=== PATIENT | female | born 1960 | race Caucasian/White ===

== ENCOUNTER 2017-02-02 18:43 | Emergency (ER) | payer MEDICAID, OTHER ==
[~2017-02-02] VITALS: Ht 157.5 cm; Wt 90.0 kg
[~2017-02-02 18:43] MED LIST: ASPI81TA3 PO; ATOR10TA65 PO; GLIM2TAB47 PO; LANT3I SC; LEVO750T25 PO; LISI-525 PO; METR500T PO
[2017-02-02 19:03] VITALS: Ht 157.5 cm; Wt 90.0 kg
--- NOTE | 2017-02-02 21:24 | ERA ---
ER Documentation Chief Complaint Date/Time DATE: 02/02/17 TIME: 21:21 Chief Complaint multi symptoms like HTN&back pains HPI 56-year-old female with a history of hypertension hyperlipidemia presents with a chief complaint of chest pain radiating to the back and epigastric pain 1 day. Patient had similar symptoms when she was visiting [place]. Patient does not remember the diagnosis that she had but stayed in the hospital 1 week. Describes mild shortness of breath. Has not taken any medications to relieve the symptoms to date. Surgical history includes hernia repair and cholecystectomy. Patient states that when she touches her chest pain increases slightly. Denies any nausea, vomiting, constipation, diarrhea, headache. No known cardiac history. Patient has no other complaints and describes no other associated manifestations. Nursing notes have been reviewed and are consistent with history given. ROS All systems reviewed and are negative except as per history of present illness. Medications Home Meds Active Scripts Levofloxacin* (Levaquin*) 750 Mg Tablet, 750 MG PO DAILY for 3 Days, TAB Prov:NADIROCHOA F. 01/13/14 Metronidazole* (Flagyl*) 500 Mg Tablet, 500 MG PO Q8 for 3 Days, TAB Prov:NADIROCHOA . 01/13/14 Lisinopril* (Zestril*) 20 Mg Tab, 20 MG PO DAILY for 30 Days Prov:NADIROCHOA 01/13/14 Insulin Glargine* (Lantus*) 100 Unit/Ml Soln, 30 UNIT SC QHS for 30 Days Prov:NADIROCHOA 01/13/14 Glimepiride* (Amaryl*) 2 Mg Tab, 2 MG PO AC BREAKFAST for 30 Days Prov:NADIROCHOA 01/13/14 Atorvastatin Calcium (Atorvastatin Calcium) 10 Mg Tab, 10 MG PO HS for 30 Days, TAB Prov:GABRIELA SCHMITZ 01/13/14 Aspirin (Aspirin) 81 Mg Chew, 81 MG PO DAILY for 30 Days Prov:NADIR01/13/14 Allergies Allergies: Coded Allergies: No Known Drug Allergy (Verified Allergy, Unknown, 01/09/14) PMhx/Soc History of Surgery: Yes (HYSTERECTOMY, CHOLECYSTECTOMY, HERNIA REAPAIR) Anesthesia Reaction: No Hx Neurological Disorder: No Hx Respiratory Disorders: Yes (asthma) Hx Cardiac Disorders: Yes (HTN) Hx Psychiatric Problems: No Hx Miscellaneous Medical Probl: Yes ( DM) Hx Alcohol Use: No Hx Substance Use: No Hx Tobacco Use: No Smoking Status: Never smoker Physical Exam Vitals Vital Signs Date Time Temp Pulse Resp B/P Pulse Ox O2 Delivery O2 Flow Rate FiO2 02/02/17 21:48 Nasal Cannula 02/02/17 19:03 98.8 70 18 199/94 95 Physical Exam Const: Morbidly obese 56-year-old female no acute distress sitting on the gurney Head: Atraumatic Eyes: Normal Conjunctiva. PERRLA, EOMI bilaterally ENT: Normal External Ears, Nose and Mouth. Neck: Full range of motion..~ No meningismus. Resp: Clear to auscultation bilaterally Cardio: Mild-moderate tenderness palpation of the chest wall. Regular rate and rhythm, no murmurs Abd: Soft, non tender, non distended. Normal bowel sounds. No masses palpated. Skin: No petechiae or rashes Back: No midline or flank tenderness. No CVA tenderness Ext: No cyanosis, or edema Neur: Awake and alert Psych: Normal Mood and Affect Result Diagram: 02/02/17213902/02/172139 Results 24 hrs Laboratory Tests Test 02/02/17 21:40 White Blood Count 10.010^3/ul Red Blood Count 5.0210^6/ul Hemoglobin 13.6g/dl Hematocrit 41.3% Mean Corpuscular Volume 82.3fl Mean Corpuscular Hemoglobin 27.1pg Mean Corpuscular Hemoglobin Concent 32.9g/dl Red Cell Distribution Width 13.7% Platelet Count 56164^3/UL Mean Platelet Volume 9.4fl Neutrophils % 58.8% Lymphocytes % 31.8% Monocytes % 7.0% Eosinophils % 2.0% Basophils % 0.2% Nucleated Red Blood Cells % 0.0/100WBC Neutrophils # 5.910^3/ul Lymphocytes # 3.210^3/ul Monocytes # 0.710^3/ul Eosinophils # 0.210^3/ul Basophils # 0.010^3/ul Nucleated Red Blood Cells # 0.010^3/ul Sodium Level 139mmol/L Potassium Level 3.5mmol/L Chloride Level 103mmol/L Carbon Dioxide Level 25mmol/L Anion Gap 15 Blood Urea Nitrogen 9mg/dl Creatinine 0.44mg/dl Glucose Level 176mg/dl Calcium Level 8.8mg/dl Troponin I < 0.012ng/ml [facility] Patient is presenting with a chief complaint of chest pain that is worse with palpation 1 day. Described as radiating to the back. Also complains of epigastric discomfort. Case was presented to my attending who recommended a workup. EKG was read by me and given the following impression: Normal access, no ST elevation depression, no T-wave abnormalities, regular rate and rhythm, and poor baseline. Chest x-ray was obtained, read by the radiologist, and given the following impression: No evidence for active cardiopulmonary disease. CBC: Unremarkable CMP: Unremarkable At this time a little suspicion for ACS, pneumonia, pneumothorax, hemothorax, cholecystitis, pancreatitis, pulmonary embolism, dissection or other cardiopulmonary pathologies. No suspicion for serious bacterial infection. Most likely diagnosis is chest pain of unknown etiology. I spoke with my attending who agrees with the assessment and plan. Have recommended over-the- counter NSAIDs for symptomatic relief. I have spoke with the patient regarding their condition and future management. They have verbally responded that they understand their status and treatment plan. The patients vitals are stable, and their current condition is appropriate for discharge. The patient will be given discharge instructions with return precautions. Departure Diagnosis: Primary Impression: Chest pain Qualified Code: R07.9 - Chest pain, unspecified type Condition: Stable Additional Instructions: Kyaw un seguimiento con ward PCP dentro de los prximos 1-3 coelho para mariano evaluaci n ms completa y mariano posible derivacin a un especialista. Devuelva el departamento de emergencia inmediatamente si los sntomas empeoran o cambian. Si tiene alguna pregunta con respecto a los medicamentos, consulte con ward farmac utico o con nosotros antes de salir. Si se producen reacciones adversas mientras katlin aby medicamentos, suspenda el tratamiento y regrese inmediatamente al servicio de urgencias. Garey aby medicamentos segn las indicaciones y complete el curso completo del tratamiento. KRISTI LOMAX PA-C Feb 02, 2017:24
[2017-02-02 22:19] LABS: BASOPHILS % 0.2 % (0.0-2.0); EOSINOPHILS # 0.2 10^3/ul (0.0-0.5); HEMATOCRIT 41.3 % (37.0-47.0); HEMOGLOBIN 13.6 g/dl (12.0-16.0); LYMPHOCYTES # 3.2 10^3/ul (0.8-2.9); LYMPHOCYTES % 31.8 % (15.0-51.0); MEAN CORPUSCULAR HEMOGLOBIN 27.1 pg (29.0-33.0); MEAN CORPUSCULAR HGB CONC 32.9 g/dl (32.0-37.0); MEAN CORPUSCULAR VOLUME 82.3 fl (82.0-101.0); MEAN PLATELET VOLUME 9.4 fl (7.4-10.4); MONOCYTE # 0.7 10^3/ul (0.3-0.9); NEUTROPHIL # 5.9 10^3/ul (1.6-7.5); NEUTROPHILS % 58.8 % (39.0-77.0); PLATELET COUNT 295 10^3/UL (140-415); RED BLOOD COUNT 5.02 10^6/ul (4.20-5.40); RED CELL DISTRIBUTION WIDTH 13.7 % (11.5-14.5)
--- NOTE | 2017-02-02 22:39 | RADRPT ---
PROCEDURE: XR Chest. CLINICAL INDICATION: Chest Pain. TECHNIQUE: Single frontal view of the chest was obtained. COMPARISON: 01/09/2014 FINDINGS: The cardiomediastinal silhouette is normal size. Pulmonary vasculature is within normal limits. Th e lungs are clear. No signs of pleural fluid or pneumothorax are seen. The osseous structures and soft tissues are unre markable. IMPRESSION: No evidence for active cardiopulmonary disease. RPTAT: HBST .Himanshu Hernandes MD, MD Date Time Electronically viewed and signed by .Himanshu Hernandes MD, on 02/02/2017 22:38 .T/
[2017-02-02 22:41] LABS: ANION GAP 15 (8-16); BLOOD UREA NITROGEN 9 mg/dl (7-20); CALCIUM 8.8 mg/dl (8.4-10.2); CARBON DIOXIDE 25 mmol/L (21-31); CHLORIDE 103 mmol/L (97-110); CREATININE 0.44 mg/dl (0.44-1.00); GLUCOSE 176 mg/dl (70-220); POTASSIUM 3.5 mmol/L (3.5-5.1); SODIUM 139 mmol/L (135-144)
[2017-02-02 22:54] LABS: TROPONIN-I < 0.012 ng/ml (0.00-0.12)
[2017-02-02 23:46] VITALS: BP 134/82; PULSE 68; RESP 18; TEMP 98.8
== END 2017-02-02 23:49 | disposition home or self-care (01) ==
LOC: FTE 18:43
DX: R07.9 Chest pain, unspecified (principal); I10 Essential (primary) hypertension; J45.909 Unspecified asthma, uncomplicated; E11.9 Type 2 diabetes mellitus without complications; Z79.4 Long term (current) use of insulin; Z79.82 Long term (current) use of aspirin; Z79.84 Long term (current) use of oral hypoglycemic drugs
CPT/HCPCS: 36415; 71010; 80048; 84484; 85025; 93005; Z7502

== ENCOUNTER 2018-01-31 06:53 | Day surgery (SDC) | END 2018-01-31 10:39 | disposition home or self-care (01) ==

== ENCOUNTER 2018-04-04 19:28 | Emergency (ER) | END 2018-04-04 23:14 | disposition home or self-care (01) ==